=== PATIENT | male | born 1965 | race Caucasian/White ===

== ENCOUNTER 2024-08-19 13:44 | Outpatient (CLI) | payer BC, SELFPAY ==
--- NOTE | ~2024-08-19 | CT_ITS ---
CLINICAL INDICATION: COMPARISON: . TECHNIQUE: Multiple contiguous axial images of the abdomen and pelvis were performed without the admi nistration of intravenous contrast The dose-length product (DLP) was 1035.61 mGy-cm. Automated exposure control and iterative reconstruction technique were employed. FINDINGS/OBSERVATIONS: Visualized lower thorax: The bilateral lung bases are clear. The heart is of normal size, without pericardial effusion. Liver: The liver demonstrates homogeneous attenuation and is enlarged measuring 20 cm in longitudinal dimens ion. Gallbladder and biliary system: The gallbladder is only minimally distended, and otherwise unremarkable. Pancreas: Limited evaluation of the pancreas secondary to the lack of intravenous contrast. Spleen: Punctate calcifications identified within the splenic parenchyma, suggesting prior granulomatous dise ase. The spleen demonstrates otherwise homogeneous attenuation and is not enlarged measuring 8 cm in longi tudinal dimension. Kidneys: The bilateral kidneys are unremarkable, without hydronephrosis or renal calculi. Adrenal glands: Unremarkable. Gastrointestinal tract: Colonic diverticulosis without surrounding inflammatory change. Appendix: The air-filled appendix is of normal caliber (axial series, images 83-92). Vascular: Calcified atherosclerotic disease within the abdominal aorta without aneurysmal dilatation. Lymph nodes: No pathologically enlarged or morphologically suspicious lymph nodes within the retroperitoneum or at the root of the mesentery. Pelvic structures: The bladder is only minimally distended, and otherwise unremarkable. The prostate gland is not enlarged. Body wall and musculoskeletal: A complex fat-containing umbilical hernia, extending to the right of midline, possibly corresponding to the area of clinical concern. No significant degenerative disease within the lower thoracic or lumbosacral spine. IMPRESSION: Complex fat-containing umbilical hernia extending to the right of midline possibly corresponding to t he area of clinical concern for which clinical correlation is needed. Prior granulomatous disease. Hepatomegaly. Reviewed, dictated and finalized at location A. CAL RECEPTIONIST IMPRESSION: Complex fat-containing umbilical hernia extending to the right of midline possi molly corresponding to the area of clinical concern for which clinical correlatio n is needed. Prior granulomatous disease. Hepatomegaly.
== END 2024-08-19 13:45 | disposition home or self-care (01) ==
LOC: MICIMG 13:45
PROVIDERS: PCP Family Medicine; Visit Provider Family Medicine
DX: K42.9 Umbilical hernia without obstruction or gangrene (principal); R16.0 Hepatomegaly, not elsewhere classified
CPT/HCPCS: 74176